=== PATIENT | male | born 1950 | race Caucasian/White ===

== ENCOUNTER → 2021-07-13 | Outpatient (CLI) | payer OTHER ==
[~2021-07-13] MED LIST: ASA81BEC PO; CO-ENZYME Q-1010 MG PO; FLONASE 0.05%50 MCG NARES; LIPITOR 40 MG T40 M1 PO; LORAZEPAM 0.50.5 MG PO; METFORMIN HCL500 MG PO; METOPROLOL SUCC50 MG PO; MULTI VITAMIN1 EACH PO; TADALAFIL5 M1 PO; TUMS200 MG PO; VITAMIN B-121000 MC3 PO; VITAMIN D325 MC2 PO; ZINC SULFATE50 MG PO
[2021-07-13 13:01] LABS: HEMATOCRIT 42.9 % (42.0-52.0); HEMOGLOBIN 14.4 gm/dL (14.0-18.0); MCH 30.5 pg (26.0-34.0); MCHC 33.7 g/dL (28.0-37.0); MCV 90.7 fL (80.0-100.0); RBC 4.73 mil/uL (4.50-6.00); WBC 6.6 thou/uL (4.0-11.0)
[2021-07-13 13:02] LABS: URINE BILIRUBIN NEGATIVE (Negative); URINE BLOOD NEGATIVE (Negative); URINE CLARITY CLEAR; URINE COLOR YELLOW; URINE GLUCOSE-RANDOM* NEGATIVE (Negative); URINE KETONES NEGATIVE (Negative); URINE LEUKOCYTES-REFLEX NEGATIVE (Negative); URINE NITRITE-REFLEX NEGATIVE (Negative); URINE PROTEIN (DIPSTICK) NEGATIVE (Negative); URINE UROBILINOGEN 0.2 E.U./dl (0.2-1.0)
[2021-07-13 13:15] LABS: INR 0.99; PROTIME 10.8 Seconds (10.5-12.1)
[2021-07-13 13:24] LABS: ALBUMIN 4.1 g/dL (3.4-5.0); CREATININE 0.9 mg/dL (0.7-1.3); POTASSIUM 4.4 mmol/L (3.5-5.1)
[2021-07-14 02:06] LABS: GLYCOHEMOGLOBIN (HGB A1C) 5.8 % (4.8-5.6)
== END ==
LOC: PAC 12:04
PROVIDERS: ATTEND Orthopaedic Surgery
DX: Z01.812 Encounter for preprocedural laboratory examination (principal); M17.0 Bilateral primary osteoarthritis of knee; Z91.048 Other nonmedicinal substance allergy status

== ENCOUNTER → 2021-07-26 | Day surgery (SDC) | payer OTHER ==
[~2021-07-26] VITALS: Ht 170.2 cm; Wt 74.8 kg
== END | disposition home or self-care (01) ==
LOC: OR 10:32
PROVIDERS: ATTEND Orthopaedic Surgery
DX: M25.561 Pain in right knee (principal); Z53.8 Procedure and treatment not carried out for other reasons; I10 Essential (primary) hypertension; E78.5 Hyperlipidemia, unspecified; Z98.890 Other specified postprocedural states; Z79.899 Other long term (current) drug therapy; Z20.822 Contact with and (suspected) exposure to COVID-19; Z87.891 Personal history of nicotine dependence

== ENCOUNTER → 2021-09-08 | Outpatient (CLI) | payer OTHER ==
[~2021-09-08] MED LIST changes: +METAMUCIL0.4 GM PO; +PEPCID20 MG PO
== END ==
LOC: PAC 12:45
PROVIDERS: ATTEND Specialist
DX: Z01.812 Encounter for preprocedural laboratory examination (principal); M17.0 Bilateral primary osteoarthritis of knee

== ENCOUNTER 2021-09-16 08:33 | Observation (INO) | payer OTHER ==
[2021-09-16] VITALS (9 sets, daily range): BP systolic 119–143; BP diastolic 74–98
[~2021-09-16] VITALS: Ht 170.2 cm; Wt 74.8 kg
--- NOTE | ~2021-09-16 | O ---
[facility] [place] [address] OPERATIVE REPORT Name: BH[place]AR [place] Room #: 443-P [facility] Dylan MTani#: [id number] Admission: 09/16/21 Attend Phys: Julien Nevarez MD Discharge: Date of : 52 Report #: [id number] THIS REPORT FOR: cc: Victoriano Rodrigez,Victoriano Bahena,Julien Hernandez MD ~ DATE OF SERVICE: 09/16/2021 PREOPERATIVE DIAGNOSIS: Right knee osteoarthritis. POSTOPERATIVE DIAGNOSIS: Right knee osteoarthritis. PROCEDURE: Right total knee arthroplasty using Navio robotic assistance. SURGEON: Julien Nevarez MD. MATERIAL HANDLER 1ST SHIFT: Milagro Hill PA-C. INDICATION FOR MATERIAL HANDLER 1ST SHIFT: Throughout the case, extensive retraction, manipulation of the knee was required. This was afforded to me by my school health assistant. ANESTHESIA: LMA with adductor canal block. IMPLANTS: A [employer]is [employer] Nephew size 6 Journey II BCS cobalt chrome femur, size 6 tibia, size 10 constrained polyethylene and size 38 patella. TOURNIQUET TIME: 54 minutes. ESTIMATED BLOOD LOSS: 25 mL COMPLICATIONS: None. SPECIMENS: None. CONDITION UPON LEAVING THE OR: Stable. INDICATIONS FOR PROCEDURE: The patient is a 71-year-old gentleman with severe right knee osteoarthritis. He had failed conservative measures for this and after discussion with him, he elected for right total knee arthroplasty. DESCRIPTION OF PROCEDURE: Risks, benefits, alternatives, complications were discussed in detail with the patient including but not limited to risk of anesthesia, risk of damage to nerves, arteries, blood vessels, risk for infection, bleeding, risk for continued knee pain, need for reoperation. Informed consent was obtained from the patient. The right knee was appropriately marked in the preoperative holding area. IV Ancef was given for [facility] [address] [place] [address] OPERATIVE REPORT Name: SHAN [place] Room #: 443-P [facility] Dylan Canchola#: [id number] Admission: 09/16/21 Attend Phys: Julien Nevarez MD Discharge: Date of : 52 Report #: [id number] preoperative antibiotics. He was brought to the operating room and placed in the supine position on the operating room table. LMA anesthesia was induced without complication. Tourniquet was placed on the right thigh. Right lower extremity was prepped and draped in normal sterile fashion. Timeout was performed properly identifying the patient and procedure as well as the instrumentation and implants. All in the operating room in agreement. Right lower extremity was exsanguinated, tourniquet was inflated. Tourniquet time was 54 minutes. Standard midline approach to the knee was made with 10 blade through the skin. Dissection was taken down sharply to the fascia and deep flaps were developed medially and laterally. Fresh 10 blade was used to make a medial parapatellar arthrotomy and the knee was inspected. There was severe tricompartmental osteoarthritis. ACL and PCL were removed sharply. Reference pins were placed in the femur and the tibia. The knee was then digitally mapped using the 2sms robotic system. Intraoperative plan was made. We sized the size 6 femur, the size 6 tibia and a 10 spacer. After acceptance of the intraoperative plan, the distal femoral cut was made with Navio bur. Distal femoral cutting block was pinned in place and chamfer cuts were made. Attention was turned to the tibia. Remainder of the menisci removed with Bovie cautery. Tibial resection guide was pinned in place using Navio for placement and tibial resection was made. Flexion and extension gaps were checked and found to be tight medially in extension. The medial osteophyte was removed from the tibia and this balanced the knee well. Tibia sized, found to be a size 6. A size 6 tibial trial was placed, pinned and punch. A size 6 femoral trial was placed and box cut was made. This was then trialed with a size 9 and then a size 10 polyethylene. The size 10 polyethylene demonstrated 1-2 mm laxity medially and laterally. Throughout range of motion in flexion, there was up to 3 mm laterally of laxity and it was felt we can make up for this with a constrained implant. A 9 mm of bone was resected from the posterior surface of the patella and a size 38 patellar trial button was placed. Knee was taken through range of motion, found to be stable, found to have good patellar tracking. Trial components were removed. Bone ends were thoroughly irrigated with normal saline. Final size 6, tibia size 6 Journey II BCS cobalt chrome femur and a size 38 patella were cemented in place using standard cementation techniques. While the cement cured, a periarticular injection consisting of morphine, ropivacaine, epinephrine, Toradol was placed around the knee joint capsule. After the cement cured, tourniquet was deflated. Hemostasis was obtained with Bovie cautery. Final size 10 constrained polyethylene was placed. A gram of vancomycin was placed deep in the joint. Fascia was closed with 0 Vicryl. Skin was closed with 2-0 Vicryl, skin staple and a ANUM dressing was applied. The patient tolerated this procedure well and went to recovery room under care of anesthesia postoperatively. By: [id number] Julien Nevarez MD /nt
--- NOTE | 2021-09-17 04:11 | NUR ---
ASSUMED PT CARE AT AROUND 1915 HRS. PT WITH RIGHT KNEE ANUM DRSG, POLAR RIVERA IN PLACE WELL SCDS.PT PAIN MAMAGED WITH HYDROCODONE. CONTINUES ON IVF AND ABTS PER PROTOCOL.USING URINAL, VOIDING ADEQUATELY. ROOM AIR, NO DISTRESS NOTED. CALLS APPROPRIATELY WITH NEEDS.
[2021-09-17 04:23] VITALS: BP 118/73
[2021-09-17 07:26] VITALS: BP 138/83
--- NOTE | 2021-09-17 09:41 | NUR ---
He up working with physical therapy.
--- NOTE | 2021-09-17 11:32 | NUR ---
Assumed care of pt at 0700. Pt a&ox4. Pain controlled with prn pain medications. Dressing c/d/i. Pt worked with physical therapy this morning and is safe to go home. Waiting on discharge orders and walker to be delivered. Call light within reach. Will continue to monitor.
[2021-09-17] MEDS ORDERED: TRI-BUFFERED A325 M1 PO (11:33)
[2021-09-17] MEDS ORDERED: HYDROCODON-ACE1 EAC7 PO (11:33)
[2021-09-17] MEDS ORDERED: MS CONTIN15 MG PO (11:34)
[2021-09-17 11:41] VITALS: BP 131/83
== END 2021-09-17 13:32 | disposition home or self-care (01) ==
LOC: OR → TBA 08:35 → OR 12:02 → 4S 14:18 → OR 14:18 → 4S 09-17 13:32
PROVIDERS: ADMIT Orthopaedic Surgery; ATTEND Orthopaedic Surgery
DX: M17.11 Unilateral primary osteoarthritis, right knee (principal); I10 Essential (primary) hypertension; E78.5 Hyperlipidemia, unspecified; Z87.891 Personal history of nicotine dependence; Z79.899 Other long term (current) drug therapy
CPT/HCPCS: 50010; 50101; 50415; 50954; 51130; 51225; 51320; 51412; 52001; 52282; 53000; 53078; 56527; 56528; 57095; 57103; 57110; 57127; 57179; 58239; 62110; 62900; 64039; 70005